=== PATIENT | female | born 1955 | race Caucasian/White ===

== ENCOUNTER 2022-09-21 09:46 | Emergency (ER) | payer MEDICARE, SELFPAY ==
[2022-09-21 09:57] VITALS: BP 142/97; PULSE 99; RESP 16; TEMP 36.6; O2SAT 98
--- NOTE | 2022-09-21 09:57 | ED.GENADULT ---
HPI - General Adult General Stated complaint: Left Leg Pain/Meds Re-Fill Time Seen by Provider: 09/21/22 09:57 Source: patient Mode of arrival: ambulatory Limitations: no limitations History of Present Illness HPI narrative: 66-year-old male history of Parkinson's presented for complaint of left lower leg swelling and pain worsening over the past 2 weeks. He endorses pain is moderate throughout the day when walking, then worsens at night when at rest. Describes the pain as throbbing, primarily located to the back of the lower leg. States the upper leg was swollen at the onset, which has improved. Denies cp, palpitations, sob, dizziness, n/v/d/f/c. Has not taken anything for pain. Patient also requesting med refill for Parkinson's medications, stating his pcp relocated. Related Data Home Medications Medication Instructions Recorded Confirmed omeprazole 20 mg capsule,delayed 20 mg PO DAILY 09/21/22 09/21/22 release quetiapine 300 mg tablet 300 mg PO TID 09/21/22 09/21/22 Review of Systems Review of Systems: CONSTITUTIONAL: Denies body aches, fever, chills EYES: Denies visual changes ENT: Denies rhinorrhea, congestion CARDIOVASCULAR: Denies chest pain, palpitations RESPIRATORY: Denies cough or dyspnea. GASTROINTESTINAL: Denies abdominal pain, nausea, vomiting, or diarrhea. SKIN: Denies rash, itching, or wounds. MUSCULOSKELETAL: Reports Left leg swelling, pain NEUROLOGIC: Denies headache, numbness, tingling, or weakness. All systems reviewed & are unremarkable except as noted in HPI and below PMFSH Past Medical History Medical History (Updated 09/21/22 @ 10:21 by Adele Escobedo, TIARA) Parkinson disease Comments At time of signature, I have reviewed and agree with nursing past medical, surgical, social and family history unless otherwise noted. Please see nursing chart for further information. There is no relevant family history pertinent to the presenting complaint Exam Narrative: GENERAL: Well-appearing, in no acute distress. HEAD: Normocephalic, atraumatic. EYES: PERRLA, conjunctivae clear NECK: Supple. CHEST: Speaks in full sentences. No respiratory distress. HEART: Regular rate and rhythm. Normal and equal peripheral pulses. EXTREMITIES: LLE has normal strength and sensation, normal range of motion. 2+ edema to ankle. No ecchymosis or cellulitis, No calf tenderness; Negative Girish's. No open wounds; alignment normal, pulse palpable and equal bilaterally, skin warm, dry, pink. Capillary refill less than 3 seconds. SKIN: Warm, dry, no rash. NEURO: Alert and oriented x3. PSYCH: Normal mood and affect Course Course Emergency Course: Patient is aware of diagnosis, understands and agrees to treatment plan. Anticipatory guidance given. Patient agrees to follow-up as directed and is aware of reasons to seek care at the emergency department. Portions of this record may have been created with voice recognition software Level of Care: Express Care Visit Vital Signs Vital signs: Reviewed Transfer Transfered to: [place] Transportation: Other (Private vehicle) Transfer rationale: Pt is agreeable to transfer. Requests transfer to [facility] via private vehicle. Risks of transportation reviewed with pt including injury, worsening of condition and . v/u. Report called to hospital, spoke with Nancy Vega PA-C, accepting physician. Pt is in stable condition at time of transfer. Advised to remain NPO and go directly to the hospital. Medical Decision Making MDM Narrative Medical decision making narrative: Discussed physical exam findings. Advised ER transfer for unilateral leg swelling and pain. Differential Diagnosis Differential Diagnosis: DVT, cellulitis, venous insufficiency Discharge Plan Discharge Clinical Impression: Left leg swelling Patient Disposition: Acute Care Hospital Condition: Stable Follow-up/Referrals: PHYSICIAN,FIRE DISPATCHER [Primary Care Pr
== END 2022-09-21 10:13 | disposition short-term general hospital (02) ==
PROVIDERS: Emergency Provider Nurse Practitioner Family
DX: R22.42 Localized swelling, mass and lump, left lower limb (principal); G20 Parkinson's disease
CPT/HCPCS: 99212; G0463

== ENCOUNTER 2022-09-21 10:35 | Emergency (ER) | payer MEDICARE, SELFPAY ==
--- NOTE | ~2022-09-21 | US_ITS ---
EXAMINATION:US venous doppler LE LT INDICATION:Left calf pain TECHNIQUE: Multiple grayscale, color flow and Doppler images of the left lower extremity deep venous systems were obtained and reviewed. COMPARISON:No prior studies for comparison. FINDINGS: There is deep venous thrombosis of the left femoral, popliteal and gastrocnemius veins. The remainder of the left lower extremity veins are patent. IMPRESSION: 1: Extensive deep venous thrombosis of the left lower extremity. Reviewed, dictated and finalized at location A.
[2022-09-21 10:40] VITALS: BP 147/98; PULSE 98; RESP 16; TEMP 37; O2SAT 98
[2022-09-21 12:41] LABS: Basophils Percent Auto 0.7 % (0.2-1.2); Eosinophils Absolute Auto 0.1 K/mm3 (0-0.3); Eosinophils Percent Auto 2.1 % (0-4.4); Hematocrit 37.8 % (37.0-47.0); Hemoglobin 12.5 g/dL (12.0-15.0); Immature Granulocyte Absolute 0.02 K/mm3 (0.00-0.031); Immature Granulocyte Percent A 0.4 % (0-0.5); Lymphocytes Absolute Auto 1.38 K/mm3 (0.9-3.2); Lymphocytes Percent Auto 24.6 % (18.3-44.2); Mean Corpuscular HGB Conc 33.1 g/dl (32-36); Mean Corpuscular Hemoglobin 29.6 pg (26-34); Mean Corpuscular Volume 89.4 fl (80-100); Mean Platelet Volume 8.8 fl (7.4-10.4); Monocytes Absolute Auto 0.5 K/mm3 (0.1-0.6); Monocytes Percent Auto 8.5 % (2.6-8.5); Neutrophils Absolute Auto 3.6 K/mm3 (1.3-6.7); Neutrophils Percent Auto 63.7 % (45.5-73.1); Platelet Count Result 401 k/mm3 (150-375); Red Blood Count 4.23 M/mm3 (4.2-5.4); Red Cell Distribution Width 15.9 % (11.5-14.5); White Blood Count 5.6 K/mm3 (4.5-10.0)
[2022-09-21 12:54] LABS: INR 0.9; Partial Thromboplastin Time 29.7 SECONDS (22.3-36.8); Potassium 3.5 mmol/L (3.4-5.0); Prothrombin Time 12.6 Seconds (11.1-14.7)
[2022-09-21 13:00] LABS: Alanine Aminotransferase 48 U/L (6-35); Albumin Level 4.3 g/dL (3.5-5.1); Alkaline Phosphatase 113 U/L (38-126); Anion Gap 9 mmol/L (8-16); Aspartate Amino Transferase 39 U/L (14-36); Bilirubin,Total 0.5 mg/dL (0.2-1.3); Blood Urea Nitrogen 12 mg/dL (7-17); Calcium 8.6 mg/dL (8.4-10.2); Carbon Dioxide 24 mmol/L (22-30); Chloride 107 mmol/L (98-107); Creatine Kinase 53 U/L (30-135); Estimated CRCL calculation 66 ml/min; Estimated Glomerular Filt Rate > 60; Glucose 99 mg/dL (65-110); Sodium 140 mmol/L (137-145)
--- NOTE | 2022-09-21 13:06 | ED.EXTPRO ---
HPI - Extremity Problem General Chief complaint: Extremity Problem,Nontraumatic Stated complaint: L LEG SWELLING X WEEKS Time Seen by Provider: 09/21/22 12:18 Source: patient and RN notes reviewed Mode of arrival: ambulatory Limitations: no limitations History of Present Illness HPI Narrative: This is a 66 year old male with history of Parkinson who presents for evaluation of left leg swelling. Patient states he has noticed swelling to his left leg for a couple weeks, and he has mild calf discomfort. He states he does not have significant pain. He denies any recent injury. He denies fever, chills, chest pain, sob, dizziness, nausea or vomiting. HE denies history of DVT or PE. Patient states he just moved her 3 weeks ago and he will need to get him home medications refilled. Related Data Home Medications Medication Instructions Recorded Confirmed amantadine HCl 1 tab-cap PO DAILY 09/21/22 09/21/22 carbidopa-levodopa 1 tab-cap PO DIRECTED 09/21/22 09/21/22 omeprazole 20 mg capsule,delayed 20 mg PO DAILY 09/21/22 09/21/22 release quetiapine 300 mg tablet 300 mg PO TID 09/21/22 09/21/22 Allergies Allergy/AdvReac Type Severity Reaction Status Date / Time No Known Allergies Allergy Verified 09/21/22 13:08 Review of Systems Constitutional: Constitutional: Denies weakness Cardiovascular: Cardiovascular: Denies syncope, Denies rapid heart rate, Denies irregular heart rhythm, Reports leg edema and Denies dyspnea Respiratory: Respiratory: Denies chest congestion, Denies hemoptysis, Denies excessive phlegm production and Denies dyspnea Gastrointestinal: Gastrointestinal: Denies abdominal pain, Denies hematochezia, Denies diarrhea and Denies vomiting Genitourinary: Genitourinary: Denies hematuria and Denies dysuria Musculoskeletal: Musculoskeletal: Denies joint swelling, Denies loss of height, Reports muscle cramps and Denies muscle weakness Neurologic: Denies syncope, Denies focal weakness and Denies weakness PMFSH Past Medical History Medical History (Updated 09/21/22 @ 16:43 by Jenna Morejon MD) Parkinson disease Schizophrenia Surgical History Surgical History (Updated 09/21/22 @ 16:43 by Jenna Morejon MD) H/O knee surgery Social History Social History (Updated 09/21/22 @ 16:43 by Jenna Morejon MD) Smoking status: Smoker, status unknown Exam Const: General: no acute distress and alert Nutritional Appearance: well nourished Orientation/consciousness: patient oriented x3 HENMT: Head: normal to inspection Eyes: EOM: EOMs intact bilaterally Neck: Neck: normal visual inspection Chest: Chest palpation & inspection: normal inspection of the chest Resp: Effort & Inspection: normal respiratory effort Auscultation: clear to auscultation bilaterally Cardio: Rate: regular rate Rhythm: regular rhythm Heart sounds: no murmurs GI: GI Palp: Yes Soft to palpation, No Tenderness to palpation present (GI), No Guarding due to palpation present (GI) and No Rigid due to palpation Auscultation: normal bowel sounds Skin: General skin exam: normal color Rashes: no rashes Neuro: General: patient oriented x3, moves all extremities and CN's II-XI intact bilaterally Other: bilateral arm tremors Extrem: Other: left leg with swelling, no calf tenderness, palpable pedal pulses present Psych: Mental Status: mental status grossly normal Affect: normal affect Attitude: cooperative Course Reevaluation(s) Reevaluation #1: I evaluated patient . Patient walked out of ER because he did not want to wait any more. I stopped patient when he was outside to notify him that he had DVT and he needed to be put on medication and have labs. I discussed if not treated it is lifethreatening. He agreed to come back inside but he states he is not going to stay overnight. Date: 09/21/22 Time: 12:15 Date: 09/21/22 Time: 13:06 Vital Signs Vital signs: Vital Signs Temperature 9
[2022-09-21] MEDS: RIVAROXABAN 15 MG TABLET PO (13:21)
[2022-09-21 13:36] VITALS: BP 151/96; PULSE 87; RESP 18; O2SAT 98
== END 2022-09-21 13:35 | disposition home or self-care (01) ==
PROVIDERS: Emergency Provider General Practice
DX: I82.412 Acute embolism and thrombosis of left femoral vein (principal); I82.432 Acute embolism and thrombosis of left popliteal vein; I82.462 Acute embolism and thrombosis of left calf muscular vein; G20 Parkinson's disease; F20.9 Schizophrenia, unspecified
CPT/HCPCS: 36415; 80053; 82550; 85025; 85610; 85730; 93971; 99284; A9270